=== PATIENT | female | born 1990 | race Caucasian/White ===

== ENCOUNTER 2025-08-01 15:57 | Outpatient (CLI) | payer BC, SELFPAY | END 2025-08-01 15:58 | disposition home or self-care (01) | LOC: LKVREF 15:58 | PROVIDERS: PCP Family Medicine; Visit Provider Family Medicine | DX: E66.811 Obesity, class 1 (principal); Z68.32 Body mass index [BMI] 32.0-32.9, adult | CPT/HCPCS: 80053; 82607; 82728; 83540 ==